=== PATIENT | male | born 1940 | race Caucasian/White ===

== ENCOUNTER 2018-10-06 10:51 | Inpatient (IN) | payer MEDICARE, OTHER ==
[~2018-10-06] VITALS: Ht 170.2 cm; Wt 93.0 kg
[~2018-10-06 10:51] MED LIST: ACCU CHEK COMP MISC; CARVEDILOL6.25 MG PO; COREG3.125 MG PO; CRESTOR20 MG PO; FUROSEMIDE40 MG PO; HUMULIN 70100 UNIT/1 SUB-Q; LEVOTHYROXINE50 MCG PO; LOSARTAN POTASS50 MG PO; OMEPRAZOLE20 MG PO; POTASSIUM CHLO10 MEQ PO; POTASSIUM CHLO20 ME1 PO; SPIRONOLACTONE25 MG PO; TAMSULOSIN HCL0.4 MG PO; TIKOSYN250 MCG PO; TORSEMIDE5 MG PO; XARELTO15 MG PO
[2018-10-06] MEDS ORDERED: K-TAB ER20 MEQ PO (11:03)
[2018-10-06] MEDS ORDERED: FERROUS SULFAT140 MG PO (11:04)
[2018-10-06] MEDS ORDERED: TORSEMIDE20 MG PO (14:32)
[2018-10-06] MEDS ORDERED: XARELTO15 MG PO (14:32)
[2018-10-06] MEDS ORDERED: ROSUVASTATIN CA40 MG PO (14:33)
[2018-10-06] MEDS ORDERED: OMEPRAZOLE40 MG PO (14:33)
[2018-10-06] MEDS ORDERED: IRON325 M1 PO (14:34)
--- NOTE | 2018-10-07 07:52 | EKG ---
[facility] [address] [facility] [place] [address] Signed Sinus rhythm with 1st degree AV block with frequent and consecutive premature ventricular complexes Prolonged QT Abnormal ECG No previous ECGs available Confirmed by CYRIL AVILEZ MD ([id number] on 10/07/2018 7:52:11 AM Electronically Signed By: CYRIL AVILEZ MD 10/07/18 0752 PATIENT NAME: KARLA PARISH SHIKHA Electrocardiogram DATE OF : 36 PHYSICIAN: CYRIL AVILEZ MD REPORT #: [id number] REPORT IS CONFIDENTIAL AND NOT TO BE RELEASED WITHOUT AUTHORIZATION
[2018-10-10] MEDS ORDERED: TORSEMIDE20 MG PO (10:09)
== END 2018-10-10 16:10 | disposition home or self-care (01) | DRG 293 ==
LOC: ED 10:51 → CCU 13:53 → MS 10-08 14:00
PROVIDERS: ADMIT Internal Medicine
DX: I11.0 Hypertensive heart disease with heart failure (principal); I27.20 Pulmonary hypertension, unspecified; I50.23 Acute on chronic systolic (congestive) heart failure; I25.10 Atherosclerotic heart disease of native coronary artery without angina pectoris; E03.9 Hypothyroidism, unspecified; E11.51 Type 2 diabetes mellitus with diabetic peripheral angiopathy without gangrene; Z79.4 Long term (current) use of insulin; Z86.73 Personal history of transient ischemic attack (TIA), and cerebral infarction without residual deficits
CPT/HCPCS: 36415; 71045; 71046; 80048; 80053; 83735; 83880; 84100; 84484; 85025; 93005; 93010; 93306; 94761; 99285-25; C9113; J1815

== ENCOUNTER 2019-01-21 13:51 | Emergency (ER) | payer MEDICARE, OTHER ==
[~2019-01-21] VITALS: Ht 170.2 cm; Wt 93.0 kg
[~2019-01-21 13:51] MED LIST changes: +FERROUS SULFAT140 MG PO; +IRON325 M1 PO; +K-TAB ER20 MEQ PO; +OMEPRAZOLE40 MG PO; +ROSUVASTATIN CA40 MG PO; +TORSEMIDE20 MG PO
[2019-01-21] MEDS ORDERED: VICTOZA 2-0.6 MG/0.1 SUB-Q (14:13)
[2019-01-21] MEDS ORDERED: DEMADEX20 MG PO (14:15)
[2019-01-21] MEDS ORDERED: NORCO 5-325 TA1 EACH PO (17:06)
== END 2019-01-21 17:32 | disposition home or self-care (01) ==
LOC: ED 13:51
DX: M54.6 Pain in thoracic spine (principal); I11.0 Hypertensive heart disease with heart failure; I50.9 Heart failure, unspecified; E11.9 Type 2 diabetes mellitus without complications; Z86.73 Personal history of transient ischemic attack (TIA), and cerebral infarction without residual deficits; Z87.891 Personal history of nicotine dependence; Z88.0 Allergy status to penicillin; Z88.8 Allergy status to other drugs, medicaments and biological substances; Z79.899 Other long term (current) drug therapy; Z79.4 Long term (current) use of insulin
CPT/HCPCS: 71250; 71260; 80053; 85025; 99284-25; Q9967